=== PATIENT | female | born 1975 | race Caucasian/White ===

== ENCOUNTER → 2024-10-07 | Outpatient (CLI) | payer BC, SELFPAY ==
--- NOTE | 2024-10-07 10:15 | XR_ITS ---
Examination: Diagnostic digital mammography, bilateral Computer aided detection 3-D breast Tomosynthesis, bilateral Date and time of exam: October 07, 2024 1007 hours Compared to mammograms dating to November 14, 2020 INDICATIONS: Diffuse microcalcifications in the right breast on mammogram March 25, 2024 Technique: Nonmagnified MLO, CC views of the breasts to been obtained, reconstructed from 3-D Tomosynthesis images. R2 computer aided detection program utilized for evaluation of suspicious masses and/or abnormal calcifications. 3-D Tomosynthesis images obtained. Findings: The breasts are heterogeneously dense, which may obscure small masses 18 mm circumscribed nodule upper outer left breast 6 mm focal asymmetry upper right breast MLO view 7.2 cm from the nipple Impression: BI-RADS Category 0: Incomplete: Need additional imaging evaluation 18 mm circumscribed nodule upper outer left breast 6 mm focal asymmetry upper right breast MLO view, 7.2 cm from the nipple Recommend bilateral breast sonography follow-up to complete the workup.
== END | disposition home or self-care (01) ==
LOC: CDIM 09:51
PROVIDERS: Referring Provider Registered Nurse; Visit Provider Registered Nurse
DX: N63.21 Unspecified lump in the left breast, upper outer quadrant (principal); N64.89 Other specified disorders of breast
CPT/HCPCS: 77062; 77066; G0279

== ENCOUNTER → 2024-11-08 | Outpatient (CLI) | payer BC, SELFPAY ==
--- NOTE | 2024-11-08 08:45 | XR_ITS ---
Examination: Breast ultrasound complete, bilateral Date and time of exam: November 08, 2024 0855 hours Comparison right breast sonogram March 25, 2024, mammogram October 07, 2024 18 mm circumscribed nodule upper outer left breast 6 mm focal asymmetry upper right breast MLO view Technique: Real-time grayscale ultrasonographic imaging bilateral breasts, including all 4 quadrants as well as nipple retroareolar and axillary regions. Findings: Sonographic images right breast Benign cysts 12:00 nodule 6 x 5 mm circumscribed Sonographic images left breast Benign cysts 1:00 nodule circumscribed 7 x 8 mm IMPRESSION: BI-RADS Category 3: Probably benign findings One additional 6 month bilateral breast sonography follow-up needed to document stability of solid nodules described above.
== END | disposition home or self-care (01) ==
PROVIDERS: PCP Family Medicine; Referring Provider Registered Nurse; Visit Provider Registered Nurse
DX: N63.15 Unspecified lump in the right breast, overlapping quadrants (principal); N63.21 Unspecified lump in the left breast, upper outer quadrant; N60.01 Solitary cyst of right breast; N60.02 Solitary cyst of left breast
CPT/HCPCS: 76641